=== PATIENT | female | born 1980 | race Caucasian/White ===

== ENCOUNTER → 2016-09-21 | Outpatient (CLI) | payer OTHER ==
--- NOTE | 2016-09-21 10:06 | Diagnostic Imaging Report ---
EXAMINATION: Bilateral breast ultrasound. TECHNIQUE: All four quadrants and the retroareolar region were examined on this study. INDICATION: Bilateral galactorrhea, worse on the right side. Right breast calcifications are also seen. FINDINGS: The four-quadrants and retroareolar region of each breast were scanned with no underlying abnormality seen. IMPRESSION: 1. Negative study. 2. Clinical correlation for the breast discharge is recommended. The bilaterality and milky type are perhaps a sign of benign etiology. Cytology evaluation and MRI could be considered if there is any clinical suspicion. 3. The calcifications along the lateral aspect of the right breast are of low suspicion for malignancy and a stereotactic biopsy is recommended. 4. The results and biopsy recommendations were personally discussed with the patient just before this dictation. 5. The report was faxed to the office of Dr. Kent by DAVID at 10:10 AM. BI-RADS 4A Dictated by: Dictated on workstation # [id number]
--- NOTE | 2016-09-21 11:55 | Diagnostic Imaging Report ---
EXAMINATION: Bilateral diagnostic mammogram. INDICATION: Bilateral galactorrhea more on the left side. CAD is utilized. The current study was also evaluated with a Computer Aided Detection (CAD) system. No prior studies are available for comparison. FINDINGS: The breasts are composed of a heterogeneously dense parenchyma which may decrease mammographic sensitivity. Calcifications in the right breast lateral aspect are seen. These are evaluated with focal compression magnification views which demonstrate slight heterogeneity. There is also a linear distribution. These are associated with low suspicion for malignancy and tissue diagnosis would be recommended. There is no mass in either breast seen. IMPRESSION: Minimally heterogenous calcifications in a linear distribution are seen along the lateral aspect of the right breast. Stereotactic biopsy ultrasound evaluation is pending. BI-RADS 0. ACR BI-RADS Category 0: Incomplete. (Needs additional imaging evaluation). Result letter will be mailed to the patient. Note: At least 10% of breast cancer is not imaged by mammography. Dictated by: Dictated on workstation # [id number]
== END ==
LOC: RAD 08:42
PROVIDERS: ATTEND Obstetrics & Gynecology
DX: R92.1 Mammographic calcification found on diagnostic imaging of breast (principal); O92.6 Galactorrhea
CPT/HCPCS: 77066